=== PATIENT | male | born 1950 | race Caucasian/White ===

== ENCOUNTER 2019-01-30 10:33 | Emergency (ER) | payer OTHER ==
[~2019-01-30] VITALS: Ht 175.3 cm; Wt 73.9 kg
[~2019-01-30 10:33] MED LIST: CARVEDILOL25 M1 PO; COLACE100 MG PO; DILTIAZEM ER120 MG PO; DILTIAZEM HCL120 M2 PO; MENACTRA; TYLENOL325 MG PO
[2019-01-30 10:38] VITALS: Ht 175.3 cm; Wt 73.9 kg
[2019-01-30 11:12] LABS: BASOPHIL % 0.6 % (0-2); PLATELET COUNT 200 x10^3mcL (130-400); RED CELL DISTRIBUTION WIDTH 14.1 % (11.5-14.5)
[2019-01-30 11:22] LABS: CALCIUM 9.3 mg/dL (8.5-10.1); CARBON DIOXIDE 29.5 mmol/L (21-32); CHLORIDE SERUM 108 mmol/L (98-107); CREATININE SERUM 1.3 mg/dL (0.7-1.3); GFR1 58 mL/min; GLUCOSE SERUM 138 mg/dL (74-106); POTASSIUM SERUM 4.9 mmol/L (3.5-5.1); SODIUM SERUM 144 mmol/L (136-145)
[2019-01-30 11:42] LABS: ALBUMIN 3.6 g/dL (3.4-5.0); ALKALINE PHOSPHATASE 57 U/L (46-116); ALT/SGPT 17 U/L (16-63); AMYLASE 98 U/L (25-115); AST/SGOT 24 U/L (15-37); BILIRUBIN TOTAL 0.77 mg/dL (0.20-1.00); CHOLESTEROL 136 mg/dL (<200); HDL CHOLESTEROL 49 mg/dL (40-60); LIPASE 115 IU/L (73-393); MAGNESIUM 2.1 mg/dL (1.8-2.4); T4(THYROXINE) 6.7 ug/dL (4.7-13.3); TOTAL PROTEIN, SERUM 7.3 g/dL (6.4-8.2)
[2019-01-30 11:57] LABS: microscopic required? NO
[2019-01-30 12:15] LABS: AMPHETAMINE QUAL UR NONE DETECTED (See below)
[2019-01-30 13:09] LABS: UA SPECIFIC GRAVITY >1.030 (1.005-1.035)
[2019-01-30 13:10] LABS: urine erythrocyte NEGATIVE (NEGATIVE)
[2019-01-30 15:52] VITALS: BP 125/88
== END 2019-01-30 15:52 | disposition home or self-care (01) ==
LOC: ED 10:33
PROVIDERS: Emergency Medicine
DX: T40.1X1A Poisoning by heroin, accidental (unintentional), initial encounter (principal); I48.91 Unspecified atrial fibrillation; G93.41 Metabolic encephalopathy; E78.00 Pure hypercholesterolemia, unspecified; L20.9 Atopic dermatitis, unspecified; F10.20 Alcohol dependence, uncomplicated; I12.9 Hypertensive chronic kidney disease with stage 1 through stage 4 chronic kidney disease, or unspecified chronic kidney disease; N18.3 Chronic kidney disease, stage 3 (moderate); Z86.19 Personal history of other infectious and parasitic diseases; Z98.890 Other specified postprocedural states; Z90.81 Acquired absence of spleen; Y92.89 Other specified places as the place of occurrence of the external cause
CPT/HCPCS: 82962; G0480; J3490